=== PATIENT | female | born 1985 | race Caucasian/White ===

== ENCOUNTER 2016-06-25 18:58 | Emergency (ER) | payer MEDICAID ==
[2016-06-25] MEDS ORDERED: PROMETHAZINE HCL 25 MG TABLET PO ONE (19:46)
[2016-06-25] MEDS ORDERED: ONDANSETRON 4 MG TAB.RAPDIS PO ONE (19:46)
--- NOTE | 2016-06-25 19:49 | ER Document Report ---
ED Medical Screen (RME) - General Chief Complaint: Nausea/Vomiting/Diarrhea Stated Complaint: VOMITING Notes: Patient became ill last night, first with sinus congestion and nasal congestion and then later began vomiting and diarrhea. She says she's vomited about 7 total times and had about 3-4 loose, diarrhea stools. She noticed her fever this morning. Her menstrual cycles have been regular, but she says she could be . Did not get a flu shot. TRAVEL OUTSIDE OF THE [place] IN LAST 30 DAYS: No - Related Data Allergies/Adverse Reactions: Penicillins Allergy (Verified 06/25/16 19:45) Past Medical History Endocrine Medical History: Denies: Hx Diabetes Mellitus Type 1, Hx Diabetes Mellitus Type 2 Renal/ Medical History: Denies: Hx Peritoneal Dialysis Past Surgical History: Reports: Hx Oral Surgery - Immunizations Hx Diphtheria, Pertussis, Tetanus Vaccination: - unk Physical Exam - Vital signs Vitals: Temp Pulse Resp BP Pulse Ox 99.5 F 107 H 16 116/66 100 06/25/16 19:41 06/25/16 19:41 06/25/16 19:41 06/25/16 19:41 06/25/16 19:41 Course - Vital Signs Vital signs: Temp Pulse Resp BP Pulse Ox 99.5 F 107 H 16 116/66 100 06/25/16 19:41 06/25/16 19:41 06/25/16 19:41 06/25/16 19:41 06/25/16 19:41
[2016-06-25 20:14] LABS: HEMATOCRIT 41.4 % (36.0-47.0); HEMOGLOBIN 13.9 g/dL (12.0-15.5); HGB HCT DIFFERENCE 0.3; MEAN CORPUSCULAR HEMOGLOBIN 31.9 pg (27.0-33.4); MEAN CORPUSCULAR HGB CONC 33.7 g/dL (32.0-36.0); MEAN CORPUSCULAR VOLUME 95 fl (80-97); RED BLOOD COUNT 4.37 10^6/uL (3.72-5.28); RED CELL DISTRIBUTION WIDTH 12.9 % (11.5-14.0)
[2016-06-25 20:15] LABS: APPEARANCE,URINE SLIGHTLY-CLOUDY; BILIRUBIN,URINE NEGATIVE (NEGATIVE); GLUCOSE, URINE NEGATIVE (NEGATIVE); KETONES,URINE 80 mg/dL (NEGATIVE); LEUKOCYTE ESTERASE,URINE NEGATIVE (NEGATIVE); NITRITE,URINE NEGATIVE (NEGATIVE); PROTEIN,URINE 30 mg/dL (NEGATIVE); URINE SPECIFIC GRAVITY 1.024; UROBILINOGEN,URINE NEGATIVE mg/dL (<2.0)
[2016-06-25 20:24] LABS: ALANINE AMINOTRANSFERASE 23 U/L (9-52); ALBUMIN 4.7 g/dL (3.5-5.0); ALKALINE PHOSPHATASE 88 U/L (38-126); ANION GAP 17 (5-19); ASPARTATE AMINO TRANSFERASE 18 U/L (14-36); BILIRUBIN,DIRECT 0.1 mg/dL (0.0-0.4); BILIRUBIN,TOTAL 0.5 mg/dL (0.2-1.3); BLOOD UREA NITROGEN 9 mg/dL (7-20); CALCIUM 10.1 mg/dL (8.4-10.2); CARBON DIOXIDE 19 mmol/L (22-30); CHLORIDE 107 mmol/L (98-107); CREATININE RESULT 0.77 mg/dL (0.52-1.25); GLUCOSE 105 mg/dL (75-110); POTASSIUM 4.1 mmol/L (3.6-5.0); SODIUM 142.8 mmol/L (137-145); TOTAL PROTEIN 7.5 g/dL (6.3-8.2)
[2016-06-25 20:53] LABS: BAND NEUTROPHILS % (MANUAL) 2 % (3-5); BASOPHILS % (MANUAL) 0 % (0-2); EOSINOPHILS % (MANUAL) 0 % (0-6); LYMPHOCYTES % (MANUAL) 0 % (13-45); PLATELET CLUMPS PRESENT; TOTAL CELLS COUNTED 100; TOXIC VACUOLATION PRESENT
--- NOTE | 2016-06-25 22:04 | ER Document Report ---
ED General - General Chief Complaint: Nausea/Vomiting/Diarrhea Stated Complaint: VOMITING Time seen by provider: 22:04 Mode of Arrival: Ambulatory Information source: Patient TRAVEL OUTSIDE OF THE [place] IN LAST 30 DAYS: No - HPI Notes: Patient presents with report of nausea vomiting diarrhea or cough congestion came on 2 days ago. The patient reports previous crampy abdominal pain, but currently denies of my questioning. The patient reports no chest pain or difficulty breathing she denies any pharyngitis. She reports no exposures to anyone who's had the flu that she is aware of. - Related Data Allergies/Adverse Reactions: Penicillins Allergy (Verified 06/25/16 19:45) Past Medical History - Social History Smoking Status: Current Every Day Smoker Chew tobacco use (# tins/day): No Smoking Education Provided: Yes Frequency of alcohol use: None Family History: Reviewed & Not Pertinent Endocrine Medical History: Denies: Hx Diabetes Mellitus Type 1, Hx Diabetes Mellitus Type 2 Renal/ Medical History: Denies: Hx Peritoneal Dialysis Past Surgical History: Reports: Hx Oral Surgery - Immunizations Hx Diphtheria, Pertussis, Tetanus Vaccination: - unk Review of Systems - Review of Systems Notes: REVIEW OF SYSTEMS: CONSTITUTIONAL : Patient reports previous fever. Denies recent illness. EENT: Denies eye, ear, throat, or mouth pain or symptoms. Denies nasal or sinus congestion or discharge. Denies throat, tongue, or mouth swelling or difficulty swallowing. CARDIOVASCULAR: Denies chest pain. Denies palpitations or racing or irregular heart beat. Denies ankle edema. RESPIRATORY: Denies shortness of breath, difficulty breathing, or wheezing. GASTROINTESTINAL: Denies current abdominal pain or distention. Denies blood in vomitus, stools, or per rectum. Denies black, tarry stools. Denies constipation. GENITOURINARY: Denies difficulty urinating, painful urination, burning, frequency, blood in urine, or discharge. FEMALE GENITOURINARY: Denies vaginal bleeding, heavy or abnormal periods, irregular periods. Denies vaginal discharge or odor. MUSCULOSKELETAL: Denies back or neck pain or stiffness. Denies joint pain or swelling. SKIN: Denies rash, lesions or sores. HEMATOLOGIC : Denies easy bruising or bleeding. LYMPHATIC: Denies swollen, enlarged glands. NEUROLOGICAL: Denies confusion or altered mental status. Denies passing out or loss of consciousness. Denies dizziness or lightheadedness. Denies headache. Denies weakness or paralysis or loss of use of either side. Denies problems with gait or speech. Denies sensory loss, numbness, or tingling. Denies seizures. PSYCHIATRIC: Denies anxiety or stress. Denies depression, suicidal ideation, or homicidal ideation. No vaginal discharge or bleeding. ALL OTHER SYSTEMS REVIEWED AND NEGATIVE. Dictation was performed using [employer] voice recognition software -: Yes All other systems reviewed and negative Physical Exam - Vital signs Vitals: Temp Pulse Resp BP Pulse Ox 99.5 F 107 H 16 116/66 100 06/25/16 19:41 06/25/16 19:41 06/25/16 19:41 06/25/16 19:41 06/25/16 19:41 - Notes Notes: PHYSICAL EXAMINATION: GENERAL: Well-appearing, well-nourished and in no acute distress. HEAD: Atraumatic, normocephalic. EYES: Pupils equal round and reactive to light, extraocular movements intact, conjunctiva are normal. ENT: Nares patent, oropharynx clear without exudates. Dry mucous membranes. NECK: Normal range of motion, supple without lymphadenopathy LUNGS: Breath sounds clear to auscultation bilaterally and equal. No wheezes rales or rhonchi. HEART: Regular rate and rhythm without murmurs ABDOMEN: Soft, nontender, nondistended abdomen. No guarding, no rebound. No masses appreciated. Negative Swann's. Female : deferred Musculoskeletal: Normal range of motion, no pitting or edema. No cyanosis. NEUROLOGICAL: Cranial nerves grossly intact. Normal speech, normal gait. Normal sensory, motor exams PSYCH: Normal mood, normal affect. SKIN: Warm, Dry, normal turgor, no rashes or lesions noted. Course - Re-evaluation Re-evalutation: 06/25/16 22:26 After Zofran and Phenergan, the patient reported no further nausea she tolerated by mouth fluids and denied any abdominal pain. The patient was offered IV fluids but she politely refused. - Vital Signs Vital signs: Temp Pulse Resp BP Pulse Ox 99.5 F 107 H 16 116/66 100 06/25/16 19:41 06/25/16 19:41 06/25/16 19:41 06/25/16 19:41 06/25/16 19:41 - Laboratory Result Diagrams: 06/25/16 19:50 06/25/16 19:50 Laboratory results interpreted by me: 06/25/16 06/25/16 06/25/16 19:50 19:50 19:50 WBC 19.0 H Seg Neuts % (Manual) 93 H Band Neutrophils % 2 L Lymphocytes % (Manual) 0 L Abs Neuts (Manual) 18.1 H Abs Lymphs (Manual) 0.0 L Carbon Dioxide 19 L Urine Protein 30 H Urine Ketones 80 H Urine Blood MODERATE H Discharge - Discharge Clinical Impression: Dehydration Vomiting Qualifiers: Vomiting type: unspecified Vomiting Intractability: non-intractable Nausea presence: with nausea Qualified Code(s): R11.2 - Nausea with vomiting, unspecified Diarrhea Qualifiers: Diarrhea type: unspecified type Qualified Code(s): R19.7 - Diarrhea, unspecified Upper respiratory infection Qualifiers: URI type: unspecified URI Qualified Code(s): J06.9 - Acute upper respiratory infection, unspecified Fever Qualifiers: Fever type: unspecified Qualified Code(s): R50.9 - Fever, unspecified Condition: Stable Disposition: HOME, SELF-CARE Instructions: Antinausea Medication ([facility]), Upper Respiratory Illness ([facility]) Additional Instructions: Drink plenty of fluids. Return to the ED in case of severe vomiting, high fever or severe pain. Prescriptions: Ondansetron [Zofran Odt 4 mg Tablet] 1 tab PO TIDP PRN #10 tab.rapdis PRN Reason: For Nausea/Vomiting Ranitidine HCl 150 mg PO BID #60 tablet
[2016-06-25] MEDS ORDERED: FAMOTIDINE 20 MG TABLET PO ONE (22:16)
[2016-06-25] MEDS ORDERED: ONDANSETRON ODT 4 MG TAB (6 TAB/DSPK) PO PRN (22:17)
[2016-06-25 22:48] VITALS: BP 115/63
== END 2016-06-25 22:47 | disposition home or self-care (01) ==
LOC: ER 18:58
DX: E86.0 Dehydration (principal); R11.2 Nausea with vomiting, unspecified; R19.7 Diarrhea, unspecified; J06.9 Acute upper respiratory infection, unspecified; R50.9 Fever, unspecified; R05 Cough; R09.81 Nasal congestion; F17.200 Nicotine dependence, unspecified, uncomplicated; R10.9 Unspecified abdominal pain
CPT/HCPCS: 99284; 36415; 84703; 85025; 80053; 81001; 87804; J3490 ×2; S0119

== ENCOUNTER → 2017-02-26 | Outpatient (CLI) | payer MEDICAID | LOC: LAB 17:12 | PROVIDERS: ATTEND Nurse Practitioner Acute Care | DX: R30.0 Dysuria (principal) | CPT/HCPCS: 87086; 87088; 87186 ==

== ENCOUNTER 2017-09-23 17:58 | Emergency (ER) | payer MEDICAID ==
[2017-09-23 18:19] VITALS: BP 123/61
--- NOTE | 2017-09-23 18:54 | ER Document Report ---
ED Medical Screen (RME) - General Chief Complaint: Shoulder Pain Stated Complaint: SHOULDER PAIN/TINGLING Time Seen by Provider: 09/23/17 18:41 Notes: RAPID MEDICAL EVALUATION DISCLOSURE I have seen this patient as part of a Rapid Medical Evaluation and, if applicable, placed any initially appropriate orders. The patient will be seen and fully evaluated, including a full history and physical exam, by a provider ( in Main ED or Fast Track) when a room becomes available. 32-year-old female recently placed on Chantix 2 weeks ago here with complaints of left arm pain described as aching as well as numbness (intermittent) that started yesterday morning. Her also thought the arm looks swollen compared to the right side. She has tried Aleve for the symptoms with not much relief. She did help her install exercise equipment but states that the pieces were not heavy. Denies previous history of PE DVT NM. EXAM CTAB RRR Strength 5/5 with intact sensation upper extremities Mild TTP of the left arm and forearm without appreciable edema/swelling TRAVEL OUTSIDE OF THE [place] IN LAST 30 DAYS: No - Related Data Allergies/Adverse Reactions: Penicillins Allergy (Verified 09/23/17 18:32) Past Medical History - Social History Chew tobacco use (# tins/day): No Frequency of alcohol use: Occasional Drug Abuse: None Endocrine Medical History: Denies: Hx Diabetes Mellitus Type 1, Hx Diabetes Mellitus Type 2 Renal/ Medical History: Denies: Hx Peritoneal Dialysis Past Surgical History: Reports: Hx Oral Surgery - Immunizations Hx Diphtheria, Pertussis, Tetanus Vaccination: - unk Physical Exam - Vital signs Vitals: Temp Pulse Resp BP Pulse Ox 98.5 F 82 18 123/61 98 09/23/17 18:17 09/23/17 18:17 09/23/17 18:17 09/23/17 18:17 09/23/17 18:17 Course - Vital Signs Vital signs: Temp Pulse Resp BP Pulse Ox 98.5 F 82 18 123/61 98 09/23/17 18:17 09/23/17 18:17 09/23/17 18:17 09/23/17 18:17 09/23/17 18:17 Doctor's Discharge - Discharge Referrals: JC TORREZ NP [Primary Care Provider] - Follow up as needed
[2017-09-23 19:18] LABS: ABSOLUTE BASOPHILS # (AUTO) 0.1 10^3/uL (0.0-0.2); ABSOLUTE EOSINOPHILS # (AUTO) 0.2 10^3/uL (0.0-0.6); ABSOLUTE LYMPHOCYTES (AUTO) 2.3 10^3/uL (0.5-4.7); ABSOLUTE MONOCYTES (AUTO) 0.8 10^3/uL (0.1-1.4); ABSOLUTE NEUT (AUTO) 9.8 10^3/uL (1.7-8.2); BASOPHILS % (AUTO) 0.9 % (0-2); EOSINOPHILS % (AUTO) 1.5 % (0-6); HEMATOCRIT 39.4 % (36.0-47.0); HEMOGLOBIN 13.6 g/dL (12.0-15.5); LYMPHOCYTES % (AUTO) 17.3 % (13-45); MEAN CORPUSCULAR HEMOGLOBIN 32.8 pg (27.0-33.4); MEAN CORPUSCULAR HGB CONC 34.5 g/dL (32.0-36.0); MEAN CORPUSCULAR VOLUME 95 fl (80-97); MONOCYTES % (AUTO) 5.9 % (3-13); PLATELET COUNT 362 10^3/uL (150-450); RED BLOOD COUNT 4.15 10^6/uL (3.72-5.28); RED CELL DISTRIBUTION WIDTH 12.6 % (11.5-14.0); SEGMENTED NEUTROPHILS % (AUTO) 74.4 % (42-78); TOTAL CELLS COUNTED % (AUTO) 100 %; WHITE BLOOD COUNT 13.2 10^3/uL (4.0-10.5)
[2017-09-23] MEDS ORDERED: KETOROLAC TROMETHAMINE 10 MG TABLET PO ONE (19:26)
[2017-09-23] MEDS ORDERED: BACLOFEN 10 MG TABLET PO ONE (19:26)
--- NOTE | 2017-09-23 19:27 | ER Document Report ---
ED Extremity Problem, Upper - General Chief Complaint: Shoulder Pain Stated Complaint: SHOULDER PAIN/TINGLING Time Seen by Provider: 09/23/17 18:41 Mode of Arrival: Ambulatory Information source: Patient Notes: Chief complaint: Left arm numbness History of complain:( obtained from----patient) 32 years old female presents today with left arm numbness for the last 2 days. She was helping her boyfriend together gym equipment prior to that. With the repetitive movement of the arm. She is also on Chantix. The pain is relieved by abducting the arm. Denies any other injury denies any precordial chest pain difficulty in breathing. . Onset: As above Duration: Gradual Severity: Moderate Quality: Achy Context: As described above Exacerbating factor and relieving factors: Movement of the arm left arm REVIEW OF SYSTEMS: CONSTITUTIONAL : Denies fever, chills, or sweats. Denies recent illness. EENT: Denies eye, ear, throat, or mouth pain or symptoms. Denies nasal or sinus congestion or discharge. Denies throat, tongue, or mouth swelling or difficulty swallowing. CARDIOVASCULAR: Denies chest pain. Denies palpitations or racing or irregular heart beat. Denies ankle edema. RESPIRATORY: Denies cough, cold, or chest congestion. Denies shortness of breath, difficulty breathing, or wheezing. GASTROINTESTINAL: Denies distention. Denies nausea, vomiting, or diarrhea. Denies blood in vomitus, stools, or per rectum. Denies black, tarry stools. Denies constipation. GENITOURINARY: Denies difficulty urinating, painful urination, burning, frequency, blood in urine, or discharge. FEMALE GENITOURINARY: Denies vaginal bleeding, heavy or abnormal periods, irregular periods. Denies vaginal discharge or odor. MUSCULOSKELETAL: Denies back or neck pain or stiffness. Denies joint pain or swelling. SKIN: Denies rash, lesions or sores. HEMATOLOGIC : Denies easy bruising or bleeding. LYMPHATIC: Denies swollen, enlarged glands. NEUROLOGICAL: Denies confusion or altered mental status. Denies passing out or loss of consciousness. Denies dizziness or lightheadedness. Denies headache. Denies weakness or paralysis or loss of use of either side. Denies problems with gait or speech. Denies sensory loss, numbness, or tingling. Denies seizures. PSYCHIATRIC: Denies anxiety or stress. Denies depression, suicidal ideation, or homicidal ideation. ALL OTHER SYSTEMS REVIEWED AND NEGATIVE. PHYSICAL EXAMINATION: GENERAL: Well-appearing, well-nourished and in no acute distress. HEAD: Atraumatic, normocephalic. EYES: Pupils equal round and reactive to light, extraocular movements intact, conjunctiva are normal. ENT: Nares patent, oropharynx clear without exudates. Moist mucous membranes. NECK: Normal range of motion, supple without lymphadenopathy LUNGS: Breath sounds clear to auscultation bilaterally and equal. No wheezes rales or rhonchi. HEART: Regular rate and rhythm without murmurs ABDOMEN: Soft, nontender, nondistended abdomen. No guarding, no rebound. No masses appreciated. Examination of genitals-deferred Musculoskeletal. Left trapezoid muscle along the superior border of the scapula as a triangle is tender on palpation which increases the numbness and tingling sensation down the left arm. There were no paraspinal muscular tenderness was noted over the cervical spine. No weakness of the arm. NEUROLOGICAL: Cranial nerves grossly intact. Normal speech, normal gait. Normal sensory, motor exams PSYCH: Normal mood, normal affect. SKIN: Warm, Dry, normal turgor, no rashes or lesions noted. Dictation was performed using [employer] voice recognition software TRAVEL OUTSIDE OF THE [place] IN LAST 30 DAYS: No - Related Data Allergies/Adverse Reactions: Penicillins Allergy (Verified 09/23/17 18:32) Past Medical History - Social History Smoking Status: Current Some Day Smoker Cigarette use (# per day): No Chew tobacco use (# tins/day): No Smoking Education Provided: No Frequency of alcohol use: Rare Drug Abuse: None Lives with: Family Family History: Reviewed & Not Pertinent Patient has suicidal ideation: No Patient has homicidal ideation: No Endocrine Medical History: Denies: Hx Diabetes Mellitus Type 1, Hx Diabetes Mellitus Type 2 Renal/ Medical History: Denies: Hx Peritoneal Dialysis Past Surgical History: Reports: Hx Oral Surgery - Immunizations Hx Diphtheria, Pertussis, Tetanus Vaccination: - unk Review of Systems - Review of Systems Notes: Dictated Physical Exam - Vital signs Vitals: Temp Pulse Resp BP Pulse Ox 98.5 F 82 18 123/61 98 09/23/17 18:17 09/23/17 18:17 07/09/18 18:17 09/23/17 18:17 09/23/17 18:17 - Notes Notes: Dictated Course - Vital Signs Vital signs: Temp Pulse Resp BP Pulse Ox 98.5 F 82 18 123/61 98 09/23/17 18:17 09/23/17 18:17 09/23/17 18:17 09/23/17 18:17 09/23/17 18:17 - Laboratory Result Diagrams: 09/23/17 19:08 09/23/17 19:00 Laboratory results interpreted by me: 09/23/17 19:08 WBC 13.2 H Absolute Neutrophils 9.8 H Discharge - Discharge Clinical Impression: Cervical radiculopathy at C5 Trapezoid ligament sprain Qualifiers: Encounter type: initial encounter Laterality: left Qualified Code(s): S43.82XA - Sprain of other specified parts of left shoulder girdle, initial encounter Condition: Fair Disposition: HOME, SELF-CARE Instructions: Sprain ([facility]), Radiculopathy ([facility]) Prescriptions: Ketorolac Tromethamine [Toradol 10 mg Tablet] 10 mg PO Q6HP PRN #14 tablet PRN Reason: Baclofen 10 mg PO QID #30 tablet Hydrocodone/Acetaminophen [Hydrocodon-Acetaminophen 5-325] 1 each PO BID #10 tablet Referrals: JC TORREZ NP [NURSE PRACTITIONER] - Follow up as needed
--- NOTE | 2017-09-23 19:31 | RADIOLOGY REPORT (SQ) ---
EXAM DESCRIPTION: CHEST 2 VIEWS COMPLETED DATE/TIME: 09/23/2017 7:11 pm REASON FOR STUDY: L arm pain numbness; eval intrathoracic etiology COMPARISON: None. EXAM PARAMETERS: NUMBER OF VIEWS: two views TECHNIQUE: Digital Frontal and Lateral radiographic views of the chest acquired. RADIATION DOSE: NA LIMITATIONS: none FINDINGS: LUNGS AND PLEURA: No opacities, masses or pneumothorax. No pleural effusion. MEDIASTINUM AND HILAR STRUCTURES: No masses or contour abnormalities. HEART AND VASCULAR STRUCTURES: Heart normal size. No evidence for failure. BONES: No acute findings. HARDWARE: None in the chest. OTHER: No other significant finding. IMPRESSION: NO ACUTE RADIOGRAPHIC FINDING IN THE CHEST. TECHNICAL DOCUMENTATION: JOB ID: [id number] 2010 [employer]- All Rights Reserved Reading location - IP/workstation name: [facility]
[2017-09-23 19:49] LABS: ALANINE AMINOTRANSFERASE 22 U/L (9-52); ALBUMIN 4.3 g/dL (3.5-5.0); ALKALINE PHOSPHATASE 80 U/L (38-126); ANION GAP 11 (5-19); ASPARTATE AMINO TRANSFERASE 15 U/L (14-36); BILIRUBIN,DIRECT 0.2 mg/dL (0.0-0.4); BILIRUBIN,TOTAL 0.2 mg/dL (0.2-1.3); BLOOD UREA NITROGEN 13 mg/dL (7-20); CALCIUM 9.9 mg/dL (8.4-10.2); CARBON DIOXIDE 28 mmol/L (22-30); CHLORIDE 104 mmol/L (98-107); GLUCOSE 90 mg/dL (75-110); POTASSIUM 4.1 mmol/L (3.6-5.0); SODIUM 142.6 mmol/L (137-145); TOTAL PROTEIN 7.1 g/dL (6.3-8.2)
--- NOTE | 2017-09-23 20:22 | EKG REPORT ---
SEVERITY:- NORMAL ECG - SINUS RHYTHM : Confirmed by: Liz Velasco MD 23-Sep-2017 20:22:05
== END 2017-09-23 21:15 | disposition home or self-care (01) ==
LOC: ER 17:58
DX: S43.82XA Sprain of other specified parts of left shoulder girdle, initial encounter (principal); M54.12 Radiculopathy, cervical region; M25.512 Pain in left shoulder; R20.0 Anesthesia of skin; Z79.899 Other long term (current) drug therapy; F17.200 Nicotine dependence, unspecified, uncomplicated
CPT/HCPCS: 93005; 99284; 36415; 85025; 80053; 84484; 85379; 71046; 93010; J3490 ×2

== ENCOUNTER → 2017-11-07 | Outpatient (CLI) | payer MEDICAID ==
--- NOTE | 2017-11-07 12:35 | RADIOLOGY REPORT (SQ) ---
EXAM DESCRIPTION: FOOT LEFT 2 VIEWS COMPLETED DATE/TIME: 11/07/2017 11:40 am REASON FOR STUDY: PAIN IN LEFT FOOT M79.672 PAIN IN LEFT FOOT COMPARISON: None. NUMBER OF VIEWS: Two views. TECHNIQUE: AP and lateral radiographic images acquired of the left foot. LIMITATIONS: None. FINDINGS: MINERALIZATION: Normal. BONES: No acute fracture or dislocation. No worrisome bone lesions. JOINTS: No effusions. SOFT TISSUES: No soft tissue swelling. No foreign body. OTHER: No other significant finding. IMPRESSION: NEGATIVE STUDY OF THE LEFT FOOT. NO RADIOGRAPHIC EVIDENCE OF ACUTE INJURY. TECHNICAL DOCUMENTATION: JOB ID: [id number] [employer]- All Rights Reserved Reading location - IP/workstation name: [email or web address]
== END ==
LOC: OD 11:17
PROVIDERS: ATTEND Nurse Practitioner Family
DX: M79.672 Pain in left foot (principal)

== ENCOUNTER 2018-09-16 03:35 | Emergency (ER) | payer MEDICAID ==
[2018-09-16 03:40] VITALS: BP 119/66
[2018-09-16] MEDS ORDERED: LIDOCAINE 1%/EPINEPHRINE INJ 20 ML VIAL INJ ONE (03:53)
--- NOTE | 2018-09-16 03:53 | ER Document Report ---
ED General - General Chief Complaint: Cyst Stated Complaint: PAINFUL CYST ON WRIST Time Seen by Provider: 09/16/18 03:48 Primary Care Provider: JOHNSON RASHEED FNP-C [NO LOCAL MD] - Follow up in 3-5 days Notes: Patient is a 33-year-old female that presents to the emergency department for chief complaint of cyst on her right wrist. Patient states she started having this about a year ago, at one point it did pop, but then over the past 3 months is gotten worse, particularly in the past 3 weeks she has had significant pain, she is scheduled to see an orthopedic surgeon coming up, but the pain became unbearable so she decided come to the emergency department. The pain is mainly located at the base of her thumb, where the cyst is lying. She describes as a sharp pain occasionally causes tingling and pain shooting up her arm and down into her hand. She currently rates the pain as a 6 out of 10, worse with range of motion of her wrist. Past Medical History: Denies chronic medical conditions Past Surgical History: [place] tooth extraction Social History: Admits to smoking cigarettes, denies alcohol or drug use. Family History: Reviewed and noncontributory for presenting illness Allergies: Reviewed, see documented allergy list. REVIEW OF SYSTEMS: Other than noted above, the 12 point review of systems was reviewed with the patient and were negative, all pertinent findings are included in the HPI. PHYSICAL EXAMINATION: Vital signs reviewed, nursing noted reviewed. GENERAL: Well-appearing, well-nourished and in no acute distress. HEAD: Atraumatic, normocephalic. EYES: Eyes appear normal, sclera anicteric, conjunctiva are normal. ENT: Moist mucous membranes. NECK: Normal range of motion, supple without lymphadenopathy LUNGS: Breath sounds clear to auscultation bilaterally and equal. No wheezes rales or rhonchi. HEART: Regular rate and rhythm without murmurs EXTREMITIES: On the patient's volar aspect of her right wrist, at the base of the thenar eminence, there is a palpable ganglion cyst, tender to palpate, without erythema, or significant swelling, there is increased pain with range of motion with flexion and extension of the wrist. Patient is neurovascular intact distally in all extremities, cap refills less than 3 seconds in all digits. The rest of the patient's extremity exam is grossly unremarkable, good range of motion and otherwise nontender except as noted. NEUROLOGICAL: No focal neurological deficits. Moves all extremities spontaneously Motor and sensory grossly intact on exam. PSYCH: Normal mood, normal affect. SKIN: Warm, Dry, normal turgor, no rashes or lesions noted on exposed skin TRAVEL OUTSIDE OF THE [place] IN LAST 30 DAYS: No - Related Data Allergies/Adverse Reactions: Penicillins Allergy (Verified 09/23/17 18:32) Past Medical History - Social History Smoking Status: Current Every Day Smoker Family History: Reviewed & Not Pertinent Endocrine Medical History: Denies: Hx Diabetes Mellitus Type 1, Hx Diabetes Mellitus Type 2 Renal/ Medical History: Denies: Hx Peritoneal Dialysis Past Surgical History: Reports: Hx Oral Surgery - Immunizations Hx Diphtheria, Pertussis, Tetanus Vaccination: - unk Physical Exam - Vital signs Vitals: Temp Pulse Resp BP Pulse Ox 98.1 F 64 16 119/66 99 09/16/18 03:39 09/16/18 03:39 09/16/18 03:39 09/16/18 03:39 09/16/18 03:39 Course - Re-evaluation Re-evalutation: Patient seen and examined, vital signs reviewed, patient's exam is consistent with a ganglion cyst, given the patient options I advised that she could use anti-inflammatories and a wrist brace and follow-up with orthopedics, or we could proceeded to aspirate the cyst in the emergency department, she elected for the latter, I explained her the risks and benefits as noted below, patient agreed to proceed, and the following procedure was performed and patient tolerated it well. Patient was discharged home to follow-up with orthopedics or her primary care, advised to watch for signs of possible infection such as erythema or streaking up her arm or pus drainage from the site. PROCEDURE: GANGLION CYST ASPIRATION Risks and benefits of the procedure were discussed with the patient, including but not limited to infection and bleeding at the site, patient agreed to proceed, the area was prepped and draped in usual sterile fashion, iodine was used, the area was anesthetized with local anesthetic, with 1% lidocaine with epinephrine a total of 0.5 mL's. Then using 18-gauge needle, from a lateral approach, it was inserted into the cyst, and using pressure, the cystic contents were expelled, patient tolerated well, no complications. - Vital Signs Vital signs: Temp Pulse Resp BP Pulse Ox 98.1 F 64 16 119/66 99 09/16/18 03:39 09/16/18 03:39 09/16/18 03:39 09/16/18 03:39 09/16/18 03:39 Discharge - Discharge Clinical Impression: Ganglion cyst of volar aspect of right wrist Condition: Stable Disposition: HOME, SELF-CARE Instructions: Ganglion Cyst ([facility]) Additional Instructions: Please follow up with orthopedic surgery, as scheduled, monitor for signs of infection such as redness or streaking up your wrist, if you develop the symptoms, please return to the emergency department to be reevaluated. Referrals: JOHNSON RASHEED FNP-C [NO LOCAL MD] - Follow up in 3-5 days
== END 2018-09-16 04:29 | disposition home or self-care (01) ==
LOC: ER 03:35
DX: M67.431 Ganglion, right wrist (principal); F17.210 Nicotine dependence, cigarettes, uncomplicated; Z88.0 Allergy status to penicillin
CPT/HCPCS: 99283; 20612; J3490

== ENCOUNTER → 2019-04-04 | Outpatient (CLI) | payer MEDICAID ==
--- NOTE | 2019-04-04 11:13 | RADIOLOGY REPORT (SQ) ---
EXAM DESCRIPTION: CT SINUSES FOR ENT COMPLETED DATE/TIME: 04/04/2019 9:14 am REASON FOR STUDY: CHRONIC SINUSITIS J32.9 CHRONIC SINUSITIS, UNSPECIFIED COMPARISON: None. TECHNIQUE: Noncontrast scanning through the paranasal sinuses using bone algorithm. Reconstructed MPR images reviewed. All images stored on PACS. All CT scanners at this facility use dose modulation, iterative reconstruction, and/or weight based d osing when appropriate to reduce radiation dose to as low as reasonably achievable (ALARA). [facility]: Dose Right [facility]: CareDose [facility]: Dose Right [facility]: Teradose 4D [facility]: Smart [employer] RADIATION DOSE: CT Rad equipment meets quality standard of care and radiation dose reduction techniq ues were employed. CTDIvol: 49.6 mGy. DLP: 1235 mGy-cm.mGy. LIMITATIONS: None. FINDINGS: Right sinuses and drainage pathways: Post-surgical changes: None. Frontal sinus: Normal. Frontoethmoidal Recess: Normal. Anterior Ethmoid Sinuses: Normal. Posterior Ethmoid Sinuses: Normal. Sphenoid Sinus: Minimal mucous membrane thickening or debris in the right sphenoid sinus Sphenoethmoidal Recess: Normal. Maxillary Sinus: Normal. Ostiomeatal Complex: Normal. Left Sinuses and Drainage Pathways: Post-Surgical Changes: None. Frontal Sinus: Normal. Frontoethmoidal Recess: Normal. Anterior Ethmoid Sinuses: Minimal mucous membrane thickening Posterior Ethmoid Sinuses: Normal. Sphenoid Sinus: Normal. Sphenoethmoidal Recess: Normal. Maxillary Sinus: Opacified with near water density material. There is bony remodeling of the medial wall left maxillary sinus with demineralization or pressure erosion, best shown on coronal image . There is opacification of the left maxillary sinus outlet on coronal image . These finding s film likely represent of left maxillary sinus mucocele Ostiomeatal Complex: Opacified on coronal image Right Olfactory Fossa: No polyps. Left Olfactory Fossa: No polyps. Middle Turbinate Maricruz Bullosa: No. Paradoxical Middle Turbinate: No. Atelectatic Uncinated Process: No. Frontal David Cell Type I: No. Frontal David Cell Type II: No. Interfrontal Sinus Septal Cell: None. Supra-Orbital Ethmoid: None. Frontal Bullar Cell: None. Suprabullar Bullar Cell: None. Sphenoethmoidal ([place]) Cell: None. Pneumatization of the Anterior Clinoid Processes: No Hypoplastic Maxillary Sinus: None. Osteoneogenesis: None. Bone Dehiscence:None. Nasal Cavity: Normal. Nasal Septum: Mid 3rd right nasal septal deviation axial image 18, coronal image 23. Anatomic Variants: Right Vidian Canal: Normal. Left Vidian Canal: Normal. 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
== END ==
LOC: RAD 08:33
PROVIDERS: ATTEND Otolaryngology
DX: J32.9 Chronic sinusitis, unspecified (principal)
CPT/HCPCS: 70486

== ENCOUNTER → 2019-05-05 | Outpatient (CLI) | payer MEDICAID | LOC: OD 10:16 | PROVIDERS: ATTEND Otolaryngology | DX: J30.9 Allergic rhinitis, unspecified (principal) | CPT/HCPCS: 36415; 82785; 86003 ==

== ENCOUNTER 2019-10-21 06:45 | Day surgery (SDC) | payer MEDICAID ==
[2019-10-21] MEDS ORDERED: PROPOFOL INJ 200 MG/20 ML VIAL IV ONE (07:39)
[2019-10-21] MEDS ORDERED: LIDOCAINE 2% INJ-PF (20 MG/ML) 10 ML AMPUL ONE (07:39)
--- NOTE | 2019-10-21 08:14 | Operative Report ---
Operative Report DATE OF SURGERY: 10/21/19 Operative Report: The risks benefits and alternatives of the procedure explained to the patient in detail and informed consent is obtained.A GIF Olympus video scope was inserted into the patient's mouth and hypopharynx, the esophagus is identified intubated and insufflated, the scope was then advanced through the esophagus stomach and duodenum, retroflexion maneuver is done ,the esophagus stomach and first and second portions of the duodenum examined PREOPERATIVE DIAGNOSIS: Epigastric pain rule out peptic ulcer disease POSTOPERATIVE DIAGNOSIS: Gastritis and duodenitis biopsies obtained OPERATION: EGD with biopsy SURGEON: ZAC ONEILL ANESTHESIA: LMAC TISSUE REMOVED OR ALTERED: As noted above. COMPLICATIONS: None. ESTIMATED BLOOD LOSS: None. INTRAOPERATIVE FINDINGS: As noted above. PROCEDURE: Patient tolerated the procedure well. No immediate postprocedure complications are noted. Patient is discharged in good condition. Discharge date 10/21/2019. Discharge diet: Regular. Discharge activity: Regular. 2 to 3-week follow-up to discuss findings. Patient is instructed call the office or proceed to the emergency room should there be any further problems or questions. Wait on the pathology.
[2019-10-21 08:39] VITALS: BP 100/54
== END 2019-10-21 08:55 | disposition home or self-care (01) ==
LOC: END 06:45
PROVIDERS: ATTEND Internal Medicine Gastroenterology
DX: K29.50 Unspecified chronic gastritis without bleeding (principal); K29.80 Duodenitis without bleeding; F17.210 Nicotine dependence, cigarettes, uncomplicated; Z79.899 Other long term (current) drug therapy; F12.90 Cannabis use, unspecified, uncomplicated; Z88.0 Allergy status to penicillin; Z03.818 Encounter for observation for suspected exposure to other biological agents ruled out
CPT/HCPCS: 43239; 87635; 88342 ×2; 88305 ×2; J2704; J3490; C9803; 731

== ENCOUNTER → 2019-11-05 | Outpatient (CLI) | payer MEDICAID ==
--- NOTE | 2019-11-05 08:19 | RADIOLOGY REPORT (SQ) ---
EXAM DESCRIPTION: U/S ABDOMEN LIMITED W/O DOP IMAGES COMPLETED DATE/TIME: 11/05/2019 7:24 am REASON FOR STUDY: RUQ PAIN (R10.11) R10.11 RIGHT UPPER QUADRANT PAIN COMPARISON: None. TECHNIQUE: Dynamic and static grayscale images acquired of the abdomen and recorded on PACS. Additio nal selected color Doppler and spectral images recorded. LIMITATIONS: None. FINDINGS: PANCREAS: No masses. Visualized pancreatic duct normal caliber. LIVER: No masses. Echotexture normal. LIVER VASCULATURE: Normal directional flow of the main portal vein and hepatic veins. GALLBLADDER: No stones. Normal wall thickness. No pericholecystic fluid. ULTRASOUND-DETECTED SQUIRES'S SIGN: Negative. INTRAHEPATIC DUCTS AND COMMON DUCT: CBD and intrahepatic ducts normal caliber. No filling defects. INFERIOR VENA CAVA: Normal flow. AORTA: No aneurysm. RIGHT KIDNEY: Normal size. Normal echogenicity. No solid or suspicious masses. No hydronephrosis. No calcifications. PERITONEAL AND RIGHT PLEURAL SPACE: No ascites or effusions. OTHER: No other significant findings. IMPRESSION: NORMAL RIGHT UPPER QUADRANT ULTRASOUND. TECHNICAL DOCUMENTATION: JOB ID: [id number] 2010 [employer]- All Rights Reserved Reading location - IP/workstation name: [email or web address]
--- NOTE | 2019-11-05 12:18 | RADIOLOGY REPORT (SQ) ---
EXAM DESCRIPTION: NM HIDA SCAN WITH CCK IMAGES COMPLETED DATE/TIME: 11/05/2019 9:35 am REASON FOR STUDY: RUQ PAIN (R10.11) R10.11 RIGHT UPPER QUADRANT PAIN COMPARISON: 11/05/2019 RADIONUCLIDE AND DOSE: DOSAGE RADIONUCLIDE: 5.47 millicuries Tc99m Mebrofenin. DOSAGE CCK: 1.3 micrograms. DOSAGE MORPHINE: Not required. The route of agent administration: Intravenous TECHNIQUE: Serial imaging right upper quadrant up to 60 minutes following injection of radionuclide. CCK injected after gallbladder visualized. LIMITATIONS: None. FINDINGS: LIVER: Normal visualization without areas of photopenia. INTRAHEPATIC BILE DUCTS: Normal size and no delay in visualization. COMMON BILE DUCT: Normal without dilatation. GALLBLADDER: Normal visualization. Calculated ejection fraction of 33%. Normal range is greater t kemp 35%. PHYSICAL RESPONSE: Patients presenting complaint was not reproduced. OTHER: No other significant finding. IMPRESSION: Mildly diminished ejection fraction suggesting a degree of dyskinesis. No obstruction. TECHNICAL DOCUMENTATION: JOB ID: [id number] 2010 [employer]- All Rights Reserved Reading location - IP/workstation name: [email or web address]
== END ==
LOC: RAD 06:54
PROVIDERS: ATTEND Nurse Practitioner Family
DX: R10.11 Right upper quadrant pain (principal)
CPT/HCPCS: 76705; 78227; J2805; A9537; Q9969

== ENCOUNTER → 2020-02-03 | Outpatient (CLI) | payer MEDICAID | LOC: OD 09:56 → EDSTATUS 02-08 08:30 | PROVIDERS: ATTEND Otolaryngology | DX: Z03.818 Encounter for observation for suspected exposure to other biological agents ruled out (principal) | CPT/HCPCS: 87635; C9803 ==